=== PATIENT | male | born 1950 | race Caucasian/White ===

== ENCOUNTER 2018-07-10 03:26 | Emergency (ER) ==
[2018-07-10 03:38] VITALS: TEMP 96.8; BMI 38.7
[2018-07-10] MEDS ORDERED: LASIX IVP STA (03:52)
--- NOTE | 2018-07-10 04:40 | CT ---
EXAM: CT chest without intravenous contrast 07/02/2018. Sagittal and coronal reformatted images obt ained HISTORY: Shortness of air. Cough COMPARISON: None. FINDINGS: Mild cardiomegaly. No pericardial effusion. Aneurysmal dilatation of the ascending thoracic aorta. On image 35 this measures 4.3 x 4.4 cm diamet er. Small to moderate left pleural effusion. Moderate right pleural effusion. Emphysematous changes throughout both lungs. Benign postinflammatory calcifications. Consolidation within the dependent aspect of both lungs may represent compressive atelectasis. Pneumonia is not excluded. Limited views of the upper abdomen show hepatic cyst. Ascites. IMPRESSION: 1. Cardiomegaly. 2. Aneurysmal dilatation of the ascending thoracic aorta. 3. Bilateral pleural effusions, right greater than left. 4. Emphysema. 5. Bilateral dependent consolidation may represent compressive atelectasis and/or pneumonia. 6. Ascites.
[2018-07-10] MEDS ORDERED: LOPRESSOR IVP STA (05:07)
[2018-07-10] MEDS ORDERED: CARDIZEM INJ 125 MG in SODIUM CHLORIDE 100 ML IV SCH (05:30)
--- NOTE | 2018-07-10 05:31 | ED.PDOC ---
General ED Provider: Dr. BLANKA STYLES-ER Chief Complaint: Cough Stated Complaint: im sob and my heart is beating fast Time Seen by Physician: 05:30 Mode of Arrival: Walk-In Information Source: Patient Exam Limitations: No limitations Nursing and Triage Documentation Reviewed and Agree: Yes Does patient meet sepsis criteria?: No System Inflammatory Response Syndrome: Not Applicable Sepsis Protocol: For patient's 13 years and over: Temp is 96.8 and below OR 101 and greater Pulse >90 BPM Resp >20/minute Acutely Altered Mental Status Are patient's symptoms suggestive of a new infection, such as: -Pneumonia -Skin, Soft Tissue -Endocarditis -UTI -Bone, Joint Infection -Implantable Device -Acute Abdominal Infection -Wound Infection -Meningitis -Blood Stream Catheter Infection -Unknown Cardiovascular Complaint Exam - Palpitations Complaint/Exam Onset/Duration: 2 weeks Symptoms Are: Still present Timing: Constant Initial Severity: Mild Current Severity: Moderate Character: Reports: Fast, Irregular, Pounding Associated Signs and Symptoms: Reports: Shortness of breath Atrial Fibrillation Risk Factors: Reports: None Differential Diagnoses: Cardiomyopathy Quality Indicator For Non-Traumatic Chest Pain/Syncope: EKG Performed Review of Systems - Review Of Systems Constitutional: Reports: No symptoms Eyes: Reports: No symptoms Ears, Nose, Mouth, Throat: Reports: No symptoms Respiratory: Reports: Cough, Short of air Cardiac: Reports: Irregular heart rate, Palpitations GI: Reports: No symptoms : Reports: No symptoms Musculoskeletal: Reports: No symptoms Skin: Reports: No symptoms Neurological: Reports: No symptoms Endocrine: Reports: No symptoms Hematologic/Lymphatic: Reports: No symptoms All Other Systems: Reviewed and Negative Past Medical History - Past Medical History Previously Healthy: No Endocrine: Reports: Unknown Cardiovascular: Reports: Unknown Respiratory: Reports: Unknown Hematological: Reports: Unknown Gastrointestinal: Reports: Unknown Genitourinary: Reports: Unknown Neuro/Psych: Reports: Unknown Musculoskeletal: Reports: Unknown Cancer: Reports: Unknown - Surgical History General Surgical History: Reports: Unknown - Family History Family History: Reports: Unknown - Social History Smoking Status: Current every day smoker, Heavy tobacco smoker Hx Substance Use: No Alcohol Screening: Occasionally - Immunizations Tetanus Shot up to Date: No Physical Exam - Physical Exam Appearance: Well-appearing Eyes: TAB ENT: Ears normal Neck: Supple Respiratory: Airway patent, Crackles Cardiovascular: Irregular rhythm, Tachycardia GI/: Soft, Nontender, No masses, Bowel sounds normal, No Organomegaly Musculoskeletal: Normal strength, ROM intact, No edema, No calf tenderness Skin: Warm, Dry, Normal color Neurological: Sensation intact, Motor intact, Reflexes intact, Cranial nerves intact, Alert, Oriented Psychiatric: Affect appropriate, Mood appropriate, Anxious Interpretation - Radiology Interpretation Radiology Interpretation By: Radiologist Radiology Results: Positive Exam Interpreted: CT Scan - EKG Interpretation Time of EKG #1: 05:32 Rate: Tachy Rhythm: Other Ectopy: None [place]: NL ST Segment: Normal Interpretation: afib with rvr Critical Care Note - Critical Care Note Total Time (mins): 30 Course - Course Hematology/Chemistry: 07/10/18 04:30 07/10/18 04:30 Orders, Labs, Meds: Lab Review 07/10/18 07/10/18 07/10/18 03:52 04:00 04:30 WBC 13.25 H RBC 5.58 Hgb 16.0 Hct 50.7 MCV 90.9 MCH 28.7 MCHC 31.6 L RDW Coeff of Roya 14.4 Plt Count 241 Immature Gran % (Auto) 0.4 Neut % (Auto) 59.5 Lymph % (Auto) 27.7 Valley % (Auto) 11.7 H Eos % (Auto) 0.2 Baso % (Auto) 0.5 Immature Gran # (Auto) 0.1 Neut # (Auto) 7.9 H Lymph # (Auto) 3.7 H Valley # (Auto) 1.6 Eos # (Auto) 0.0 Baso # (Auto) 0.1 Puncture Site Lr O2 Saturation 98.0 ABG pH 7.437 ABG pCO2 27.9 L ABG pO2 102.0 H ABG HCO3 18.8 L ABG Total CO2 20 L ABG Base Excess -5 L Huy Test + FiO2 % 21.0 Sodium Potassium Chloride Carbon Dioxide Anion Gap BUN Creatinine Estimated GFR (MDRD) BUN/Creatinine Ratio Glucose Calcium Total Bilirubin AST ALT Alkaline Phosphatase NT-Pro-B Natriuret Pep Total Protein Albumin Globulin Albumin/Globulin Ratio TSH Urine Color Yellow Urine Clarity Slightly Urine pH 5.0 Ur Specific [place] >=1.030 Urine Protein 2+ Urine Glucose (UA) Negative Urine Ketones Trace Urine Blood Negative Urine Nitrite Negative Urine Bilirubin 2+ Urine Urobilinogen 4.0 Ur Leukocyte Esterase Negative Urine Microscopic WBC 0-2 Ur Squamous Epith Cells 0-2 Ur Renal Epithelial Cell 0-2 Urine Bacteria Trace Hyaline Casts 10-20 Fine Granular Casts 0-2 Urine Mucus 1+ 07/10/18 04:30 WBC RBC Hgb Hct MCV MCH MCHC RDW Coeff of Roya Plt Count Immature Gran % (Auto) Neut % (Auto) Lymph % (Auto) Valley % (Auto) Eos % (Auto) Baso % (Auto) Immature Gran # (Auto) Neut # (Auto) Lymph # (Auto) Valley # (Auto) Eos # (Auto) Baso # (Auto) Puncture Site O2 Saturation ABG pH ABG pCO2 ABG pO2 ABG HCO3 ABG Total CO2 ABG Base Excess Huy Test FiO2 % Sodium 136.5 Potassium 4.94 Chloride 95.2 L Carbon Dioxide 26.2 Anion Gap 20.04 BUN 33.6 H Creatinine 1.67 H Estimated GFR (MDRD) 41.00 BUN/Creatinine Ratio 20.11 Glucose 153.4 H Calcium 9.11 Total Bilirubin 2.74 H AST 121.7 H ALT 55.4 H Alkaline Phosphatase 89.5 NT-Pro-B Natriuret Pep 6150.000 H Total Protein 7.68 Albumin 4.23 Globulin 3.45 Albumin/Globulin Ratio 1.22 TSH 7.430 H Urine Color Urine Clarity Urine pH Ur Specific [place] Urine Protein Urine Glucose (UA) Urine Ketones Urine Blood Urine Nitrite Urine Bilirubin Urine Urobilinogen Ur Leukocyte Esterase Urine Microscopic WBC Ur Squamous Epith Cells Ur Renal Epithelial Cell Urine Bacteria Hyaline Casts Fine Granular Casts Urine Mucus Orders Category Date Time Status ABG DRAW REQUEST Stat CARDIO 07/10/18 03:53 Completed EKG-(ED ONLY) Stat CARDIO 07/10/18 03:52 Completed TRANSFER TO OUTSIDE FACILITY .TO [facility] 07/10/18 05:33 Active ([place], [place]) WRITE TRANSFER/SBAR NOTE ONCE CARE 07/10/18 05:33 Active DISCHARGE ASSESSMENT ONCE DISCHARGE 07/10/18 05:33 Active WRITE DISCHARGE NOTE ONCE DISCHARGE 07/10/18 05:33 Active ED IV/MEDIPORT/POWERPORT .ONCE EMERGENCY 07/10/18 03:52 Active ABG Stat LAB 07/10/18 03:52 Completed CBC W/ AUTO DIFF Stat LAB 07/10/18 04:30 Completed COMPREHENSIVE METABOLIC PANEL Stat LAB 07/10/18 04:30 Completed D-DIMER Stat LAB 07/10/18 04:30 Received NT-PROBNP Stat LAB 07/10/18 04:30 Completed THYROID STIMULATING HORMONE Stat LAB 07/10/18 04:30 Completed URINALYSIS C & S IF INDICATED Stat LAB 07/10/18 04:00 Completed 0.9 % Sodium Chloride [Saline Flush] MEDS 07/10/18 03:52 Ordered 1 syr IVF PRN PRN 0.9 % Sodium Chloride [Sodium Chloride] 100 ml MEDS 07/10/18 05:30 Ordered Diltiazem HCl Inj [Cardizem Inj] 125 mg IV 10 mg/hr Furosemide [Lasix] MEDS 07/10/18 03:52 Discontinued 20 mg IVP ONCE STA Metoprolol Tartrate [Lopressor] MEDS 07/10/18 05:07 Discontinued 10 mg IVP ONCE STA Sodium Chloride 0.9% [Sodium Chloride] 1,000 ml MEDS 07/10/18 06:[address] CHEST W/O CONTRAST Stat RADS 07/10/18 03:52 Completed Medications Generic Name Dose Route Start Last Admin Trade Name Freq PRN Reason Stop Dose Admin Diltiazem HCl 125 mg/ Sodium 125 mls @ 10 mls/hr 07/10/18 05:30 07/10/18 05: 38 Chloride IV 10 mg/hr .[id number] SAMI 10 mls/hr Administration Protocol 10 MG/HR Sodium Chloride 1,000 mls @ 1,000 mls/hr 07/10/18 06:08 Sodium Chloride IV 07/10/18 07:07 BOLUS STA Sodium Chloride 1 syr 07/10/18 03:52 07/10/18 05:21 Saline Flush IVF 1 syr PRN PRN Administration To flush IV Discontinued Medications Generic Name Dose Route Start Last Admin Trade Name Freq PRN Reason Stop Dose Admin Furosemide 20 mg 07/10/18 03:52 07/10/18 04:32 Lasix IVP 07/10/18 03:53 20 mg ONCE STA Administration Metoprolol Tartrate 10 mg 07/10/18 05:07 07/10/18 05:16 Lopressor IVP 07/10/18 05:08 10 mg ONCE STA Administration Vital Signs: Temp Pulse Resp BP Pulse Ox 07/10/18 05:38 138 H 23 98/74 07/10/18 03:27 96.8 F L 100 H 28 H 139/96 H 98 MCKENZIE Risk Score MCKENZIE Risk Score: Risk Score Odds of by 30D 0 0.1 (0.1-0.2) 1 0.3 (0.2-0.3) 2 0.4 (0.3-0.5) 3 0.7 (0.6-0.9) 4 1.2 (1.0-1.5) 5 2.2 (1.9-2.6) 6 3.0 (2.5-3.6) 7 4.8 (3.8-6.1) Departure - Departure Time of Disposition: 05:32 Disposition: TSF SHORT-TRM HOSP Discharge Problem: Afib Qualifiers: Atrial fibrillation type: unspecified Qualified Code(s): I48.91 - Unspecified atrial fibrillation CHF (congestive heart failure) Qualifiers: Heart failure type: unspecified Heart failure chronicity: acute Qualified Code( s): I50.9 - Heart failure, unspecified Instructions: A-fib (Atrial Fibrillation) (ED) Condition: Stable Pt referred to PMD for follow-up: Yes IPMP verified?: No Allergies/Adverse Reactions: Allergies No Known Drug Allergies Adverse Reaction (Verified 07/10/18 03:38) Home Medications: Ambulatory Orders 1 [No Reported Medications] 07/10/18 Transfer Form Completed: Yes Disposition Discussed With: Patient
[2018-07-10] MEDS ORDERED: CARDIZEM INJ ONE (05:32)
[2018-07-10] MEDS ORDERED: SODIUM CHLORIDE 1,000 ML IV STA (06:08)
[2018-07-10 06:18] VITALS: BP 88/64
[2018-07-10] MEDS ORDERED: LANOXIN IVP STA (06:18)
[2018-07-10] MEDS ORDERED: LOVENOX SUBCUT STA (06:34)
== END 2018-07-10 07:37 | disposition short-term general hospital (02) ==
LOC: ED 03:26
DX: I48.91 Unspecified atrial fibrillation (principal); I50.9 Heart failure, unspecified; F17.210 Nicotine dependence, cigarettes, uncomplicated
CPT/HCPCS: 36415; 80053; 81001; 82803; 83880; 84443; 85025; 85379; 93005; 93010; 96365; 96372; 96375; 99285

== ENCOUNTER 2018-07-10 07:28 | Outpatient (CLI) ==
[2018-07-10 03:38] VITALS: BMI 38.7
== END 2018-07-10 07:54 | disposition short-term general hospital (02) ==
LOC: AMBL 07:28
PROVIDERS: ATTEND Internal Medicine
DX: I48.91 Unspecified atrial fibrillation (principal); I50.9 Heart failure, unspecified; R60.0 Localized edema